=== PATIENT | male | born 1930 | race Caucasian/White ===

== ENCOUNTER 2017-10-13 11:40 | Emergency (ER) | payer MEDICARE ==
[~2017-10-13] VITALS: Ht 180.3 cm; Wt 92.1 kg
[~2017-10-13 11:40] MED LIST: TYLENOL EXTRA500 M1 PO; ULTRAM50 MG PO
[2017-10-13] MEDS ORDERED: ACETAMINOPHEN/CODEINE 300MG - 30MG TAB PO ONE (12:30)
--- NOTE | 2017-10-13 13:13 | Diagnostic Imaging Report ---
PROCEDURE:HIP RIGHT 2-3 VW (+/- PELVIS) COMPARISON:None. INDICATIONS:FALL FINDINGS: Stool and bowel gas overlie some of the osseous structures of the pelvis and sacrum. Normal mineralization. No acute displaces fracture or dislocation. 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 Additional degenerative changes of the pubic symphysis, SI joints, and lumbar spine. Joint spaces are within normal limits. Three punctate metallic densities project over the midline pelvis and may represent brachytherapy seeds. Phleboliths project over the pelvis. Vascular calcifications are noted. CONCLUSION: No acute osseous abnormalities. Dictated by: Christopher Travis M.D. on 10/13/2017 at 13:14 Electronically approved by: Christopher Travis M.D. on 10/13/2017 at 13:14
== END 2017-10-13 14:14 | disposition home or self-care (01) ==
LOC: ER 11:40
DX: S70.01XA Contusion of right hip, initial encounter (principal); W01.0XXA Fall on same level from slipping, tripping and stumbling without subsequent striking against object, initial encounter; Y92.008 Other place in unspecified non-institutional (private) residence as the place of occurrence of the external cause; I10 Essential (primary) hypertension
CPT/HCPCS: 99283